=== PATIENT | male | born 1935 | race Hispanic/Latino ===

== ENCOUNTER 2024-08-29 10:44 | Day surgery (SDC) | payer OTHER, MEDICARE ==
[2024-08-27 11:03] LABS: BASOPHILS # (AUTO) 0.03 K/uL (0.00-0.20); BASOPHILS % (AUTO) 0.4 % (0.0-5.0); EOSINOPHILS # (AUTO) 0.11 K/uL (0.00-0.70); EOSINOPHILS % (AUTO) 1.5 % (0.0-8.0); HEMATOCRIT 46.4 % (42-54); IMMATURE GRANULOCYTE ABSOLUTE 0.03 K/uL (0-1); LYMPHOCYTES # (AUTO) 1.4 K/uL (1.0-4.8); LYMPHOCYTES % (AUTO) 19.6 % (21.0-51.0); MEAN CORPUSCULAR HEMOGLOBIN 30.5 pg (27.0-33.0); MEAN CORPUSCULAR HGB CONC 32.8 g/dL (32.0-36.0); MONOCYTES # (AUTO) 0.6 K/uL (0.1-1.0); MONOCYTES % (AUTO) 7.5 % (3.0-13.0); NEUTROPHILS # (AUTO) 5.2 K/uL (1.8-7.7); NEUTROPHILS % (AUTO) 70.6 % (40.0-77.0); PLATELET COUNT (AUTO) 191 K/uL (130-400); RED BLOOD CELL COUNT(AUTO) 4.99 MIL/uL (4.50-6.20); RED CELL DISTRIBUTION WIDTH 14.4 % (11.0-15.5); WHITE BLOOD COUNT (AUTO) 7.4 K/uL (4.8-10.8)
[2024-08-27 11:09] LABS: CREATININE 1.6 mg/dL (0.5-1.3); POTASSIUM 3.9 mmol/L (3.5-5.1)
[2024-08-27 11:32] VITALS: BP 119/79; PULSE 94; RESP 17; TEMP 97.3
[2024-08-27 11:33] LABS: INR 1.15 (0.85-1.15)
[2024-08-27 11:35] LABS: PARTIAL THROMBOPLASTIN TIME 29.2 SEC (26.3-35.5)
--- NOTE | 2024-08-27 12:05 | EKG ---
[facility] Test Date: 2024-08-27 Test Time: 10:53:46 Pat Name: DARIO MILES Department: [facility] Room: Gender: M Animal Care Taker: [phone] : 1935 Requested By: Jose LUIS Order Number: [id number] Reading MD: Arnaldo Meade Measurements Intervals [place] Rate: 100 P: 63 CA: 155 QRS: -54 QRSD: 94 T: 6 QT: 343 QTc: 443 Interpretive Statements Atrial-paced complexes Inferior infarct, old Compared to ECG 08/12/2015 12:06:38 Myocardial infarct finding now present Sinus rhythm no longer present ST (T wave) deviation no longer present Electronically Signed On 08-29-2024 10:11:33 CDT by Arnaldo Meade Please click the below link to view image of tracing.
[2024-08-29] VITALS (10 sets, daily range): BP systolic 95–116; BP diastolic 51–77; PULSE 64–89; RESP 14–16; TEMP 97.6–97.9
[~2024-08-29] VITALS: Ht 167.6 cm; Wt 65.3 kg
[~2024-08-29 10:44] MED LIST: ACET-66 PO; ALEN70TA80 PO; ASPI-1197 PO; DONE-51 PO; FURO20TA4 PO; LORA10TA7 PO; LOSA25TA41 PO; MIRT-73 PO; TAMS-55 PO
[2024-08-29] MEDS: 0.9%NACL 1000ML 1,000 ML IV SCH (12:46)
[2024-08-29] MEDS ORDERED: LIDOCAINE HCL 1% MDV 50ML VIAL ONE (12:47)
[2024-08-29] MEDS ORDERED: SODIUM BICARB 50MEQ 50ML VIAL 50 ML ONE (12:47)
[2024-08-29] MEDS ORDERED: BUPIvacaine/PF 0.25% 30ML VIAL IJ ONE (12:47)
[2024-08-29] MEDS ORDERED: IOHEXOL-350 50ML VIAL IV ONE (12:47)
[2024-08-29] MEDS ORDERED: FENTanyl CITRate PF 50 MCG/1 ML 2ML VIAL ONE (13:10)
[2024-08-29] MEDS ORDERED: MIDAZOLAM HCL 1 MG/ML 2ML VIAL ONE (13:10)
[2024-08-29] MEDS ORDERED: ceFAZolin SODIUM 1 GM VIAL ONE (13:18)
--- NOTE | 2024-08-29 14:04 | NUR ---
PT ARRIVED TO DAY PT BED 1 LEFT CHEST SITE ASYMPTOMATIC. DRESSING DRY INTACT
[2024-08-29] MEDS ORDERED: acetaMINOPHEN WITH coDEINE 1 TAB TAB PO PRN ×2 (14:30)
--- NOTE | 2024-08-29 15:00 | NUR ---
POST CATH LEFT UPPER CHEST DRESSING IN PLACE. STERILE GAUZE DRESSING COVERED WITH A STERILE TEGADERM DRESSING. NO ACTIVE BLEEDING NOTED. NO REDNESS OR SWELLING NOTED. PATIENT AWAKE AND ORIENTED X4. FAMILY AT BEDSIDE. CALL LIGHT WITHIN REACH. BED LOW AND LOCKED SIDE RAILS UP X4.
--- NOTE | 2024-08-29 15:15 | NUR ---
POST CATH LEFT UPPER CHEST DRESSING IN PLACE AND INTACT. STERILE GAUZE DRESSING COVERED WITH A STERILE TEGADERM DRESSING. NO ACTIVE BLEEDING OR DRAINAGE NOTED. NO REDNESS OR SWELLING NOTED TO THE SURROUNDING SITE. FAMILY AT BEDSIDE. PATIENT AWAKE AND ORIENTED X4. BED LOW AND LOCKED CALL LIGHT WITHIN REACH. SIDE RAILS UP X4.
--- NOTE | 2024-08-29 15:18 | NUR ---
REPORT RECEIVED REPORT VIA SBAR IN NURSES STATION FROM ADAIR BREAUX RN.
--- NOTE | 2024-08-29 17:45 | NUR ---
DRESSING REINFORCED INSTRUCTIONS TO PATIENT AND FAMILY MEMBER TO NOT REMOVE DRESSING UNTIL SEEN IN THE OFFICE WITH DR. LUIS OR IN 10 DAYS.
[2024-08-29] MEDS ORDERED: ceFAZolin SODIUM 1 GM VIAL IVPB ONE (18:00)
== END 2024-08-29 17:48 | disposition home or self-care (01) ==
LOC: DAH 10:44
PROVIDERS: ATTEND Internal Medicine Cardiovascular Disease
DX: Z45.02 Encounter for adjustment and management of automatic implantable cardiac defibrillator (principal); I48.0 Paroxysmal atrial fibrillation; I25.5 Ischemic cardiomyopathy; I11.0 Hypertensive heart disease with heart failure; I50.42 Chronic combined systolic (congestive) and diastolic (congestive) heart failure; I48.20 Chronic atrial fibrillation, unspecified; E78.5 Hyperlipidemia, unspecified; J44.9 Chronic obstructive pulmonary disease, unspecified; I25.10 Atherosclerotic heart disease of native coronary artery without angina pectoris; Z95.5 Presence of coronary angioplasty implant and graft; Z79.01 Long term (current) use of anticoagulants; Z79.82 Long term (current) use of aspirin; Z79.899 Other long term (current) drug therapy
CPT/HCPCS: 80048; 85025; 85610; 85730; 36415; 93005; 33263; 99156; 99157 ×2; C1721; J3010; J0690 ×2; J0665; J3490 ×2; J2250; A4215; A4222; A4221; A4663; A4216; A4606; A4223 ×3; Q9967